=== PATIENT | female | born 1995 | race Caucasian/White ===

== ENCOUNTER → 2019-08-22 | Outpatient (CLI) | payer BC, SELFPAY ==
[2019-08-22 13:43] VITALS: BMI 33.7
[2019-08-22 18:54] LABS: Amphetamine Urine VISTA NEGATIVE (<1000 ng/mL); Barbiturate Urine VISTA NEGATIVE (< 200 ng/mL); Benzodiazepine Urine VISTA NEGATIVE (< 200 ng/mL); Cocaine Urine VISTA NEGATIVE (< 300 ng/mL); Ecstacy Urine VISTA NEGATIVE (< 500 ng/mL); Methadone Urine VISTA NEGATIVE (< 300 ng/mL); PCP Urine VISTA NEGATIVE (< 25 ng/mL); THC Urine VISTA NEGATIVE (< 50 ng/mL); Vista UDS pH Range 7
[2019-08-23 01:31] LABS: Chlamydia Trachomatis by PCR Negative (Negative); Neisserai gonorrhoeae by PCR Negative (Negative); Probe Check PASS; Sample Adequacy Control PASS; Specimen Processing Control PASS
[2019-08-27 19:57] LABS: HPV Reflexed? NOT INDICATED
== END | disposition home or self-care (01) ==
LOC: LABSPEC 17:02
PROVIDERS: Referring Provider Obstetrics & Gynecology; Visit Provider Obstetrics & Gynecology
DX: O99.210 Obesity complicating pregnancy, unspecified trimester (principal); Z3A.00 Weeks of gestation of pregnancy not specified
CPT/HCPCS: 80307; 87086; 87088; 87491; 87591; 88175; G0145

== ENCOUNTER → 2019-08-23 13:40 | Outpatient (CLI) | payer BC, SELFPAY ==
[2019-08-22 13:43] VITALS: BMI 33.7
--- NOTE | 2019-08-23 13:41 | US_ITS ---
STUDY: FIRST TRIMESTER OBSTETRICAL ULTRASOUND REASON FOR EXAM: Female, 23 years old dating LMP: June 21, 2019. TECHNIQUE: Transvaginal TECHNICAL QUALITY: Adequate. PRIOR ULTRASOUND: None. FINDINGS: There is visualization of a single gestational sac in a normal intrauterine position. The mean sac diameter (MSD) measures 1.5 cm, indicating an estimated gestational age (EGA) of 6 weeks, 2 days. The gestational sac shape is within normal limits. There is a visualized yolk sac. The yolk sac measures 3 mm. The placenta is non-visualized. There is visualization of an embryo with no cardiac activity, consistent with intrauterine demise. The crown-rump length (CRL) measures 1.6 cm, indicating an estimated gestational age (EGA) of 7 weeks, 1 days. The estimated gestation age (EGA) by LMP is 9 weeks, 0 days. The estimated date of delivery (SAM) by LMP is March 27, 2020. The estimated gestation age (EGA) by US is 7 weeks, 1 days. The estimated date of delivery (SAM) by US is April 09, 2020. The uterus measures 8.8 cm x 6.3 cm x 4.9 cm. There is no demonstrated uterine fibroid. The cervix is closed. The right ovary measures 2.7 cm x 1.9 cm x 1.8 cm. There is no right ovarian cyst. There is no visualized right adnexal mass or complex lesion. The left ovary was not visualized. There is no fluid in the cul de sac. US/Transvaginal w/Preg US IMPRESSION: demise. Electronically Signed: Manuel Villeda, at 14:43 EDT , Service support ,
== END ==
PROVIDERS: Visit Provider Obstetrics & Gynecology
DX: O02.1 Missed abortion (principal); Z3A.01 Less than 8 weeks gestation of pregnancy
CPT/HCPCS: 76817

== ENCOUNTER 2019-08-31 15:14 | Emergency (ER) | payer BC, SELFPAY ==
[2019-08-27 06:06] VITALS: BMI 33.9
[2019-08-31 15:15] VITALS: BP 143/77; PULSE 89; RESP 17; TEMP 36.6; O2SAT 100; BMI 35.5
--- NOTE | 2019-08-31 15:30 | EKG12_ITS ---
Test Reason : Blood Pressure : / mmHG Vent. Rate : 085 BPM Atrial Rate : 085 BPM P-R Int : 130 ms QRS Dur : 080 ms QT Int : 360 ms P-R-T Axes : 056 058 041 degrees QTc Int : 428 ms Sinus rhythm with marked sinus arrhythmia Otherwise normal ECG Confirmed by SCOTTY SCHILLING, GAYE ([id number]), purchase request editor DWAIN CHANG ([id number]) on 09/02/2019 12:53:41 PM Referred By: COLLIN Confirmed By:GAYE FAJARDO MD
--- NOTE | 2019-08-31 15:30 | RAD_ITS ---
STUDY: X-RAY CHEST REASON FOR EXAM: Female, 23 years old. Intermittent chest pain beginning last night. This told to stay that was not identifiable. Started vaginal bleeding last night. TECHNIQUE: Single AP portable view of the chest. COMPARISON: None. FINDINGS: The lungs are clear and expanded. There is no demonstrated pleural abnormality. Normal size heart. Normal mediastinum and amanda. Normal visualized pulmonary arteries. Normal visualized aortic arch and descending thoracic aorta. Normal visualized thoracic spine. Normal visualized ribs, clavicles, and shoulders. There is no demonstrated abnormality of the visualized soft tissue structures of the upper abdomen. RAD/Chest 1 View (Portable) IMPRESSION: Normal x-ray examination of the chest. Electronically Signed: Duc Campa DO at 16:35 EDT Tel [phone], Service support ,
--- NOTE | 2019-08-31 15:31 | ED.DCSUM_ITS ---
- ER Visit Summary Date of Service: 08/31/19 Chief Complaint: Chest pain History of Present Illness: The patient is a 23 F who presents with chest pain. She describes an intermittent tightness in the middle part of her chest. Does not radiate. Nothing seems to make it better or worse. She has nausea along with some shortness of breath. She is wondering if this is anxiety. She states that she has been through a rough week. She found out earlier this week that her fetus had no heartbeat. She is scheduled to have a D&C next Monday due to non-viability of the fetus. She states she did have an anxiety attack at her brother's once but does not take any medications for this currently. Denies any history of coronary disease. She has no coronary disease risk factors. She has no DVT or PE risk factors. Physical Examination: Vital signs reviewed. HEENT exam unremarkable. Heart is regular rate and rhythm without murmurs. Lungs are clear to auscultation. Her chest is tender in the left parasternal area. Abdomen is soft and nontender. Extremities reveal no edema. Peripheral pulses are equal. Skin exam normal. Neurologic exam normal. Test Results: EKG is normal sinus rhythm with a rate of 85. No ST changes. Troponin is normal. Her hCG quantitative is 7150. Blood type is AB-. Chest x- ray normal Emergency Department Course and Treatment: The patient is PERC negative based on her history and vital signs. I feel that her chest pain is likely anxiety related. I do not feel it is cardiac. I have a very low suspicion for PE. The patient's blood type is AB-. I discussed with Dr. Maldonado. We will give her a dose of RhoGam. She is going to follow-up with her next week. Treatment Plan: [] Disposition: Discharge Impression: Chest pain, miscarriage This note was generated with [employer] dictation software. It may contain incorrect words, spelling, and punctuation that were not noted in review of the chart prior to signing ED Disposition - Plan for ED Patient: Disposition: Home or Assisted Living Instructions: ED Chest Pain NonCardiac Referrals: Care Physician,No Primary [Primary Care Provider] - Manisha Maldonado MD [STAFF PHYSICIAN] -
[2019-08-31 15:41] VITALS: BP 160/104; PULSE 108; RESP 18; O2SAT 100
[2019-08-31 16:49] LABS: hCG Titer Quant., Serum 7150 mIU/mL (1-3)
[2019-08-31 18:15] VITALS: PULSE 81; RESP 19; O2SAT 99
[2019-08-31 19:31] VITALS: BP 128/70; PULSE 68; RESP 16; O2SAT 98
--- NOTE | 2019-08-31 19:31 | ED.RN ---
REVIEWED D/C INSTRUCTIONS, FOLLOW UP CARE, AND S/S THAT WOULD WARRANT A RETURN TO THE ED WITH PT. PT VERBALIZED AN UNDERSTANDING AND DENIES FURTHER QUESTIONS FOR THIS RN. PT SKIN P/W/D, RESP EVEN AND UNLABORED, PT A&O X 3, NO DISTRESS NOTED. PT AMBULATED OUT OF ED, GAIT STEADY.
== END 2019-08-31 19:33 | disposition home or self-care (01) ==
PROVIDERS: Emergency Provider Emergency Medicine
DX: O03.9 Complete or unspecified spontaneous abortion without complication (principal); R06.02 Shortness of breath; R11.0 Nausea; F41.9 Anxiety disorder, unspecified
CPT/HCPCS: 71045; 84484; 84702; 86900; 86901; 90384; 93005; 96372; 99283; A4216; J2790

== ENCOUNTER 2019-09-03 09:25 | Day surgery (SDC) | payer BC, SELFPAY ==
[2019-08-24 11:19] VITALS: BMI 33.7
[2019-08-27 06:06] VITALS: BP 123/76; PULSE 92; RESP 16; TEMP 37.3; O2SAT 99; BMI 33.9
[2019-08-27] MEDS: Lactated Ringers 1,000 ML 100 ML IV (06:16)
--- NOTE | 2019-08-27 07:30 | POC_PTH ---
PATIENT: ASRAH BLUM [place] [facility] [id number] AGE/SX: 23/ ROOM: RE09/03/[address]: Dr. Manisha Maldonado MD : [id number] BED: DIS: 09/03/2019 SPEC #: [id number] RECD: 09/03/19 15:25 STATUS: JOSIE ROGER #: [id number] LESLEY: 08/27/19 07:[address]: Manisha Maldonado DEPT: SURGICAL PATHOLOGY RECD BY: Sujit Baker ENTERED: 09/04/19 09:12 SP TYPE: PROD CONC OTHR DR: No Primary Care Phys Tissues: Product of conception, NOS Procedures: Surgery Specimen Level IV HEADER OPERATION: Dilation and curettage, suction PRE-OP DIAGNOSIS: Missed TISSUE SUBMITTED: Products of conception MICROSCOPIC DIAGNOSIS Products of conception: [place]idua, gestational endometrium and immature chorionic villi (products of conception). SJ:eunice 09/05/19 MICROSCOPIC DESCRIPTION Slides are reviewed. GROSS DESCRIPTION Received in fixative is one container labeled with the patient's name and designated products of conception. The specimen consists of multiple irregular fragments of light geronimo soft tissue that in aggregate measure 8 x 7.5 x 1 cm. parts are not grossly recognized. Taping Foreman portions are submitted in one cassette. / AM:eunice 09/04/19 TC:5 CPT: 27629
[2019-09-03] VITALS (11 sets, daily range): BP systolic 112–134; BP diastolic 57–78; PULSE 55–86; RESP 16; TEMP 36.3–36.7; O2SAT 100; BMI 34.9
--- NOTE | 2019-09-03 09:24 | HP.PCM_ITS ---
- Problem List (1) Missed Status: Acute Comment: 8 weeks measuring 7 spouse Sujit History and Physical Date of Admission: 09/03/19 Intake Vital Signs 08/24/19 BMI 33.7 08/23/19 Height 5 ft 8 in Intake Visit Reasons: Review u/s results Allergies No Known Allergies Allergy (Unverified 08/22/19 13:43) [facility] Social History (Updated 08/24/19 @ 11:[address] Manisha Maldonado MD) adopted: No household members: spouse housing: house current occupational status: employed current occupation: [employer] pets and animals: No history of recent travel: No sexually active: Yes Smoking Status: Never smoker second hand exposure: No alcohol intake: never substance use type: does not use seatbelt use: always do you feel safe at home: Yes additional social history: Lorri Licea HPI Review u/s results : Details: SARAH BLUM is a 23 year old who presents for follow up of ultrasou nd and diagnosed with a missed . crl 16mm with no heartbeat, GS measuring smaller for GA, patient denies any bleeding or cramping. Female Reproductive History Menopausal Symptoms: No night sweats Pregancy History 1 Elective abortions Hx Para Spontaneous abortions Hx # Term Pregnancies Ectopic pregnancies Hx # Pregnancies Multiple births # of living children ROS Const Constitutional: Denies fatigue, night sweats, weight gain or weight loss ENT ENT: Reports system reviewed and no additional complaints, except as docu Cardio Card: Denies chest pain Resp Resp: Denies cough or dyspnea GI GI: Reports as per HPI; denies abdominal pain, constipation, nausea or vomiting : Denies nipple discharge, urinary frequency, urinary incontinence, urinary hesitancy, urinary urgency, vaginal discharge, vaginal dryness, vaginal odor or vaginal itching Musc Musc: Denies joint pain, back pain or muscle weakness Skin Skin/Breast: Denies hair loss, change in hair, dry skin, breast lump, breast pain, breast skin changes or nipple discharge Neuro Neuro: Reports system reviewed and no additional complaints, except as docu Psych Psych: Reports system reviewed and no additional complaints, except as docu Endo Endo: Denies cold intolerance, excessive sweating, heat intolerance or increased thirst Mayur/Lymph Hematologic/Lymphatic: Denies easy bleeding, Denies easy bruising, Denies enlarged lymph nodes Exam Const General: cooperative, healthy appearing, comfortable, no acute distress, well developed Orientation: alert [facility] Head: normal to inspection, normocephalic Ears: hearing grossly normal bilaterally, external ears normal Nose: external nose normal, nares normal Face and sinus: normal facial exam Neck Neck: normal visual inspection, no lymphadenopathy Thyroid: thyroid normal Chest Chest palpation & inspection: normal inspection of the chest Resp Effort & Inspection: normal respiratory effort Auscultation: clear to auscultation bilaterally Cardio Rate: regular rate Rhythm: regular rhythm Heart Sounds: S1 normal, S2 normal GI Inspection: normal to inspection, non-distended Palpation: soft, no hepatosplenomegaly General: bladder normal to palpation External Female Exam: normal external appearance, normal appearance of the urethra Urethra: normal appearance of the urethra, normal palpation, no discharge Speculum Exam - Vagina: normal appearance of the vagina, normal vaginal discharge Speculum Exam - Cervix: normal appearance of the cervix, nontender Bimanual Exam- Vagina & Uterus: normal bimanual exam, uterine size normal, bladder normal to palpation, uterine shape normal, No cervical tenderness, uterine mobility normal, uterine consistency normal, normal cervical palpation, uterus non-tender Bimanual Exam- Adnexa, other: normal adnexae, adnexae mobile, no adnexal masses, pelvic support normal Pelvic Support: normal Musc Other: gross motor intact no deficits, full bilateral strength Skin General: no rashes or lesions noted Neuro General: alert, awake, moves all extremities, no focal motor deficits Motor: muscle tone normal throughout Extrem General: normal to inspection, no pedal edema Psych Appearance: grossly normal Mental Status: mental status grossly normal Affect: normal affect Speech and Movement: speech and movement normal Assessment & Plan Problems 1. Missed O02.1 8 weeks measuring 7 spouse Sujit Plan After discussing the patient's diagnosis and treatment plan options, patient wishes to proceed with surgical management. I have discussed with the patient the risks, benefits, and alternatives of the procedure which include but are not limited to risks of anesthesia, bleeding, infection, possible damage to bowel, bladder, or surrounding vasculature which could lead to additional surgery to evaluate any complications. Patient agrees to procedure and wishes to proceed. ACOG/uptodate references given for additional information regarding procedure. plan suction d and c Coding Level of Care Code Off vis,est,level 3 Diagnoses Missed O02.1 UPDATE- I have seen the patient and performed any clinically relevant updates to the history and physical exam. Manisha Maldonado MD
[2019-09-03 10:08] LABS: Hematocrit 40.2 % (37-47); Hemoglobin 13.4 g/dL (12.0-15.0); Mean Corp Hgb Conc 33.3 g/dL (32-36); Mean Corpuscular Hgb 29.4 pg (27.0-32.0); Mean Corpuscular Volume 88.2 fL (81-99); Mean Platelet Vol. 9.9 fl (6.2-12.0); Platelet Count 242 K/mm3 (150-450); RBC Distribution Width CV 12.3 % (11.6-14.6); RBC Distribution Width SD 39.5 fl (35.1-43.9); Red Blood Count 4.56 M/mm3 (4.2-5.4); White Blood Count 6.1 K/mm3 (4.4-11.0)
[2019-09-03] MEDS: Doxycycline 100 MG CAPSULE PO (11:15)
[2019-09-03] MEDS: Lactated Ringers 1,000 ML 100 ML IV (11:18)
--- NOTE | 2019-09-03 13:56 | PCM.OPRPT ---
Problem List (1) Missed Status: Acute Comment: 8 weeks measuring 7 spouse Sujit Report of Operation Date of Procedure: 09/03/19 Pre-Operative Diagnosis: missed ab 8 weeks Post-Operative Diagnosis: same Surgery/Procedure Performed:: suction d and c Description of Surgical Findings:: 10 week uterus Type of Anesthesia:: Local MAC Special Medications: none Specimen's removed: POC Drains: none Estimated Blood Loss (mL): 100 Fluids Replaced: crystalloid Description of Procedure: Patient was taken to the operating room and placed under MAC local anesthesia. She was prepped and draped in the normal sterile fashion the dorsal lithotomy position. Bladder was drained of clear urine and anterior lip of the cervix was grasped and the uterus sounded to 10 cm. Cervix was progressively dilated to allow passage of a 10 mm suction curette. Progressive passes were made removing the retained products of conception without complication. Sharp curettage confirmed complete removal of the retained products. All instruments were removed from the vagina and excellent hemostasis was noted and the patient was taken to recovery in stable condition. Grafts/Implants Used: none - Complications none Multi Select Codes - Urinary/Genital Urinary/Genital CPT Codes: 85385 Surg Trtmt missed Ab 1TM
--- NOTE | 2019-09-03 13:57 | DCINST_ITS ---
Discharge Diet: No Restrictions Discharge Activity: Return to Normal Activity, May Shower, May Take a Tub Bath Allergies/Adverse Reactions: Allergies No Known Allergies Allergy (Unverified 09/03/19 10:58) Medications to take at Discharge NK 08/22/19 Primary Care Physician: Care Physician,No Primary [Primary Care Provider] - Test Results: Test results from this visit will be discussed in further detail at your follow- up appointment, if applicable. Please Follow Up With: Manisha Maldonado MD - [phone]
== END 2019-09-03 15:05 | disposition home or self-care (01) ==
LOC: SDC 09:26 → AC 09:38
PROVIDERS: Referring Provider Obstetrics & Gynecology; Visit Provider Obstetrics & Gynecology
PROC: (CPT 59820; principal; 2019-09-03 10:55)
DX: O02.1 Missed abortion (principal); Z11.59 Encounter for screening for other viral diseases
CPT/HCPCS: 01965; 59820; 85027; 86850; 86870; 86900; 86901; 87635; 88305; G2023; J7120; J2405; U0002

== ENCOUNTER 2020-01-28 11:45 | Emergency (ER) | payer BC, SELFPAY ==
[2019-09-19 11:23] VITALS: BMI 34.9
[2020-01-28 11:45] VITALS: BP 144/75; PULSE 90; RESP 16; TEMP 36.3; O2SAT 100; BMI 33.7
--- NOTE | 2020-01-28 12:10 | ED.DCSUM_ITS ---
History of Present Illness Chief Complaint: Abd Pain Informant: Patient Onset: Today Context: Sudden Onset Timing: Intermittent Current Severity: Mild Maximum Severity: Moderate Narrative: The patient is a 24-year-old female at approximately 5 weeks gestation who presents to the emergency department with midepigastric pain and nausea that is since improved. The patient states she was in her normal state of health. She states she suddenly got tightness across her mid abdomen and felt very nauseated. She did not have vomiting. She states that since then, her pain has improved, but she does still feel mildly nauseated. She denies any vaginal bleeding or discharge. She denies any food intolerance. She denies any chest pain or shortness of breath. She states she discussed this with her diabetes nurse who referred her to the emergency department. Prior similar symptoms: No Recent Illness/Hospitalization: No Past Medical History - Allergies and Home Meds Allergies/Adverse Reactions: Allergies No Known Allergies Allergy (Verified 01/28/20 11:47) Primary Care Physician: Care Physician,No Primary [Primary Care Provider] - Prior records reviewed: Yes Past Medical History: None Surgical History: no surgical history Smoking Status: Never smoker Review of Systems General: Denies: Chills, Fever, Sweats Eyes: Denies: Visual changes - bilaterally, Diplopia ENT: Denies: Rhinorrhea, Sore throat Cardiovascular: Denies: Chest pain, Palpitations Respiratory: Denies: Dyspnea, Cough, Dyspnea on exertion Gastrointestinal: Reports: Abdominal pain, Nausea. Denies: Vomiting, Diarrhea, Melena, Hematochezia Genitourinary: Denies: Dysuria, Hematuria, Frequency Musculoskeletal: Denies: Back pain, Extremity Pain Skin: Denies: Rash, Wounds Neurological: Denies: Headache, Weakness, Numbness Physical Exam Vital Signs/Narrative: Vital Signs Temp Pulse Resp BP Pulse Ox 01/28/20 11:45 97.4 F L 90 16 144/75 H 100 Inital Vital Signs reviewed: Yes General: Well nourished, Well developed, No Acute Distress Head: Normocephalic, Atraumatic Eyes: Perrl, EOMI ENT: Moist mucous membranes, No rhinorrhea Neck: Supple, Nontender Cardiovascular: Regular rate, Regular rhythm, No murmurs Respiratory: No distress, CTA bilaterally, Chest nontender Abdomen: Soft, Nontender, Nondistended, Normal bowel sounds Back: Nontender, Normal Inspection Extremities: Nontender, No edema Skin: Normal color, No rash Neurological: Alert, Oriented x3, Cranial nerves II-XII grossly intact, Normal Strength, Normal Sensation Psychological: Normal affect, Normal Mood Diagnostic/Tx/Re-eval Clinical Impression(s) from Imaging Studies Obstetrics Ultrasound 01/28/20 13:38 IMPRESSION: Uterine gestational sac with a mean gestational age of 5 weeks. No yolk sac or pole is seen at this time Electronically Signed: Manuel Hattieshyamduong, at 14:52 EDT , Service support , Abnormal Lab Results 01/28/20 01/28/20 01/28/20 12:10 12:10 12:10 WBC 6.0 RBC 4.48 Hgb 13.0 Hct 39.7 MCV 88.6 MCH 29.0 MCHC 32.7 RDW Std Deviation 40.4 RDW Coeff of Sukhjinder 12.4 Plt Count 231 MPV 10.4 Immature Gran % (Auto) 0.200 Neut % (Auto) 68.2 Lymph % (Auto) 21.6 [place] % (Auto) 7.0 Eos % (Auto) 2.3 Baso % (Auto) 0.7 Absolute Neuts (auto) 4.1 Absolute Lymphs (auto) 1.29 Nucleated RBC % 0 Sodium 139 Potassium 3.5 Chloride 108 H Carbon Dioxide 27.0 Anion Gap 4 L BUN 6 L Creatinine 0.56 Estim Creat Clear Calc 151.94 Est GFR (MDRD) Af Amer 174 Est GFR (MDRD) Non-Af 143 BUN/Creatinine Ratio 10.8 Glucose 86 Calcium 8.9 Total Bilirubin 0.30 AST 10 L ALT 18 Alkaline Phosphatase 59 Total Protein 7.5 Albumin 4.1 Globulin 3.4 Albumin/Globulin Ratio 1.2 Lipase 93 HCG, Quant 1055 H Urine Color Urine Clarity Urine pH Ur Specific Willows Urine Protein Urine Glucose (UA) Urine Ketones Urine Occult Blood Urine Nitrite Urine Bilirubin Urine Urobilinogen Ur Leukocyte Esterase Urine RBC Urine WBC Ur Squamous Epith Cells Urine Bacteria Urine Mucus 01/28/20 13:25 WBC RBC Hgb Hct MCV MCH MCHC RDW Std Deviation RDW Coeff of Sukhjinder Plt Count MPV Immature Gran % (Auto) Neut % (Auto) Lymph % (Auto) [place] % (Auto) Eos % (Auto) Baso % (Auto) Absolute Neuts (auto) Absolute Lymphs (auto) Nucleated RBC % Sodium Potassium Chloride Carbon Dioxide Anion Gap BUN Creatinine Estim Creat Clear Calc Est GFR (MDRD) Af Amer Est GFR (MDRD) Non-Af BUN/Creatinine Ratio Glucose Calcium Total Bilirubin AST ALT Alkaline Phosphatase Total Protein Albumin Globulin Albumin/Globulin Ratio Lipase HCG, Quant Urine Color Yellow Urine Clarity Clear Urine pH 7.0 Ur Specific Willows 1.010 Urine Protein Negative Urine Glucose (UA) Normal Urine Ketones 5 H Urine Occult Blood Negative Urine Nitrite Negative Urine Bilirubin Negative Urine Urobilinogen Normal Ur Leukocyte Esterase Negative Urine RBC 0 SEEN Urine WBC 0 SEEN Ur Squamous Epith Cells 0 SEEN Urine Bacteria 0 SEEN Urine Mucus 0 SEEN - Medical Decision Making The patient presents with midepigastric abdominal pain that is since resolved. She did have a positive home test. Her abdomen is soft and nontender. IV was established. Metabolic work-up was pursued. Liver functions were normal. Blood counts were normal. Quant was just over thousand. With the abdominal pain, I did want to rule out ectopic. Patient underwent ultrasound. This shows no evidence of dangerous process. There is a documented gestational sac corresponding with her dates. She is had no further symptoms. At this point, I do feel that she is safe for outpatient therapy. Impression 1. Midepigastric abdominal pain-resolved 2. ED Disposition - Plan for ED Patient: Diagnosis: Instructions: ED Established Normal Symptoms Referrals: Care Physician,No Primary [Primary Care Provider] -
[2020-01-28 12:19] LABS: Absolute Lymphocyte Count 1.29 X10^3/uL (0.83-4.51); Absolute Neutrophil Count 4.1 X10^3/uL (2.0-7.7); Basophil# 0.04 X10^3/uL; Basophil% 0.7 % (0-1); Eosinophil# 0.14 X10^3/uL; Eosinophils% 2.3 % (0-5); Hematocrit 39.7 % (37-47); Lymphocyte # 1.29 X10^3/ul (4.0); Lymphocyte % 21.6 % (19-41); Mean Corp Hgb Conc 32.7 g/dL (32-36); Mean Corpuscular Volume 88.6 fL (81-99); Mean Platelet Vol. 10.4 fl (6.2-12.0); Monocyte# 0.42 X10^3/uL; NRBC Flagged by Analyzer 0 % (0-5); Neutrophil # 4.06 X10^3/uL (2.7-7.7); Neutrophil % 68.2 % (47-70); Platelet Count 231 K/mm3 (150-450); RBC Distribution Width CV 12.4 % (11.6-14.6); RBC Distribution Width SD 40.4 fl (35.1-43.9); Red Blood Count 4.48 M/mm3 (4.2-5.4)
[2020-01-28] MEDS: 0.9% Normal Saline 1,000 ML 1000 ML IV (12:40)
[2020-01-28 12:50] LABS: ALB/GLOB Ratio 1.2 RATIO (0.9-2.4); AST(SGOT) 10 U/L (15-37); Alanine Aminotransfer ALT/SGPT 18 U/L (13-56); Albumin, Serum 4.1 g/dL (3.2-5.0); Alkaline Phosphatase 59 U/L (45-117); Anion Gap 4 (5-15); BUN 6 mg/dL (7-18); BUN/Creat Ratio 10.8 RATIO (10-20); Calcium,Total 8.9 mg/dL (8.5-10.1); Chloride 108 mmol/L (98-107); Creatinine, Serum 0.56 mg/dL (0.55-1.02); EST Glomerular Filtration Rate 143 mL/min (>60); Est Glom Filt Rate - Afr Amer 174 mL/min (>60); Estimated Creatinine Clearance 151.94 ml/min; Globulin 3.4 g/dL (2.2-4.2); Glucose 86 mg/dL (74-106); Lipase 93 U/L (73-393); Potassium 3.5 mmol/L (3.5-5.1); Protein, Total 7.5 g/dL (6.4-8.2); Sodium Level 139 mmol/L (136-145)
[2020-01-28 13:36] LABS: hCG Titer Quant., Serum 1055 mIU/mL (1-3)
--- NOTE | 2020-01-28 13:38 | US_ITS ---
STUDY: FIRST TRIMESTER OBSTETRICAL ULTRASOUND REASON FOR EXAM: Female, 24 years old abd pain -- 1055 quant LMP: 12/19/2019. TECHNIQUE: Transvaginal TECHNICAL QUALITY: Adequate. PRIOR ULTRASOUND: Comparison is made with prior examination dated 08/23/2019. FINDINGS: There is visualization of a single gestational sac in a normal intrauterine position. The mean sac diameter (MSD) measures 3.7 mm, indicating an estimated gestational age (EGA) of 5 weeks, 0 days. The gestational sac shape is within normal limits. There is no demonstrated yolk sac. The placenta is non-visualized. There is no demonstrated embryo ( pole). The estimated gestation age (EGA) by LMP is 5 weeks, 5 days. The estimated date of delivery (SAM) by LMP is 09/24/2020. The estimated gestation age (EGA) by US is 5 weeks, 0 days. The estimated date of delivery (SAM) by US is 09/29/2020. The uterus measures 7.9 cm x 6 cm x 3.8 cm. There is no demonstrated uterine fibroid. The cervix is closed. A trace amount of fluid is seen within the endometrial. The right ovary measures 3.2 cm x 3.1 cm x 2.8 centimeters. There is no right ovarian cyst. There is no visualized right adnexal mass or complex lesion. The left ovary measures 3.3 cm x 3 cm x 1.5 cm. There is no left ovarian cyst. There is no visualized left adnexal mass or complex lesion. There is no fluid in the cul de sac. US/Transvaginal w/Preg US IMPRESSION: Uterine gestational sac with a mean gestational age of 5 weeks. No yolk sac or pole is seen at this time Electronically Signed: Manuel Villeda, at 14:52 EDT , Service support ,
[2020-01-28 13:39] LABS: Bacteria 0 SEEN /hpf (None Seen); Color, Urine Yellow (Yellow); Glucose, Dipstick Normal (Normal); Ketone-Dipstick 5 mg/dl (Negative); Leukocyte Esterase-Dipstick Negative /ul (Negative); Mucous, Urine 0 SEEN /hpf (<or=2+); Nitrite-Dipstick Negative (Negative); Occult Blood-Urine Negative /ul (Negative); Protein-Dipstick Negative (Negative); Red Blood Cells-Urine 0 SEEN /hpf (0-5); Squamous Epithelial Cells - UA 0 SEEN /hpf (5-10); Urine Bilirubin Dipstick Negative (Negative); Urine Clarity Clear (Clear); Urine Urobilinogen Normal (Normal); White Blood Cells 0 SEEN /hpf (0-5)
[2020-01-28 15:23] VITALS: PULSE 87; RESP 17; O2SAT 98
== END 2020-01-28 15:24 | disposition home or self-care (01) ==
PROVIDERS: Emergency Provider Emergency Medicine
DX: O26.891 Other specified pregnancy related conditions, first trimester (principal); R10.13 Epigastric pain; R11.0 Nausea; Z3A.01 Less than 8 weeks gestation of pregnancy
CPT/HCPCS: 76817; 80053; 81001; 83690; 84702; 85025; 96360; 99281; A4216

== ENCOUNTER → 2020-02-26 15:15 | Outpatient (CLI) | payer BC, SELFPAY ==
[2020-02-26 14:28] VITALS: BMI 34.0
--- NOTE | 2020-02-26 15:20 | US_ITS ---
STUDY: FIRST TRIMESTER OBSTETRICAL ULTRASOUND REASON FOR EXAM: Female, 24 years old. Viability. LMP: 12/19/2019. TECHNIQUE: Transvaginal TECHNICAL QUALITY: Adequate. PRIOR ULTRASOUND: 01/18/2020. FINDINGS: There is visualization of a single gestational sac in a normal intrauterine position. The mean sac diameter (MSD) measures 1.68 cm, indicating an estimated gestational age (EGA) of 6 weeks, 4 days. The gestational sac shape is within normal limits. There is no demonstrated yolk sac. The placenta is non-visualized. There is visualization of a live embryo. The crown-rump length (CRL) measures 0.42 cm, indicating an estimated gestational age (EGA) of 6 weeks, 1 days. There is demonstrated cardiac activity with a heart rate of 90 bpm. The estimated gestation age (EGA) by LMP is 9 weeks, 6 days. The estimated date of delivery (SAM) by LMP is 09/24/2020. The estimated gestation age (EGA) by prior US is 9 weeks, 1 days. The estimated date of delivery (SAM) by prior US is 09/29/2020 .The estimated gestation age (EGA) by current US is 6 weeks, 3 days. The estimated date of delivery (SAM) by US is 10/18/2020. The uterus measures 9.0 x 6.0 x 5.4 cm. There is no demonstrated uterine fibroid. The cervix is closed. The right ovary measures 2.1 x 2.1 x 2.3 cm. There is no right ovarian cyst. There is no visualized right adnexal mass or complex lesion. The left ovary measures 3.1 x 1.8 x 1.3 cm. There is no left ovarian cyst. There is no visualized left adnexal mass or complex lesion. There is no fluid in the cul de sac. US/Transvaginal w/Preg US IMPRESSION: 1. Live single intrauterine at 6 weeks, 3 days. SAM is 10/18/2020. This lags approximately 3 weeks behind expected gestational age by initial ultrasound. 2. heart rate of 90 bpm. 3. No visualization of the yolk sac. 4. Normal ovaries. Electronically Signed: Duc Campa DO at 16:24 EST Tel [phone], Service support ,
== END ==
PROVIDERS: Referring Provider Obstetrics & Gynecology; Visit Provider Obstetrics & Gynecology
DX: O36.80X0 Pregnancy with inconclusive fetal viability, not applicable or unspecified (principal); Z87.59 Personal history of other complications of pregnancy, childbirth and the puerperium; Z3A.01 Less than 8 weeks gestation of pregnancy
CPT/HCPCS: 76817

== ENCOUNTER → 2020-03-02 18:47 | Outpatient (CLI) | payer BC, SELFPAY ==
[2020-02-26 14:28] VITALS: BMI 34.0
--- NOTE | 2020-03-02 19:07 | US_ITS ---
We are attempting to reach an attending provider to discuss findings. An addendum with communication details will be sent when the communication is complete. HISTORY: VIABILITY BLEEDING EXAMINATION: US OB Transvaginal TECHNIQUE: Transvaginal (for optimal evaluation of the adnexa) pelvic ultrasound was performed. Grayscale, spectral waveform, and color flow Doppler evaluation of the adnexa. COMPARISON: None LMP: Unknown Beta-hCG: Unknown FINDINGS: UTERUS: 9 x 6.4 x 4.8 cm. Fluid is seen within the cervical canal RIGHT OVARY: 3.5 x 2.4 x 2.1 cm with a volume of 22.19 mL. Corpus luteal cyst measuring 1.4 x 1.9 x 1.9 cm. Vascular flow is noted LEFT OVARY: 3.4 x 2.1 x 1.3 cm with a volume of 20.93 mL. The vascular flow was noted FREE FLUID: None. INTRAUTERINE GESTATIONAL SAC(s) (size/shape): Single. 1.60 cm. YOLK SAC: not identified. POLE: identified CRL 0.39 cm. ESTIMATED GESTATION AGE: 6 weeks 1 day. HEART MOTION: Not identified bpm. PLACENTA: Not visualized due to age. SUBCHORIONIC HEMORRHAGE: None. AMNIOTIC FLUID: Qualitatively normal. US/Transvaginal w/Preg US IMPRESSION: Intrauterine gestational sac or pole visualized with no heart tones. No yolk sac is noted. Estimated gestational age by ultrasound is 6 weeks 1 day with an estimated date of delivery of 10/25/2020 and estimated gestational age by dates is 10 weeks 4 days with an estimated date of delivery by dates of 10/05/2020 This most likely embryonic demise however this may also represent early intrauterine . I would recommend serial beta hCG and follow-up ultrasound for further evaluation if clinically indicated. at 2206 Reported and signed by: Alida Griffith DO Electronically Signed: Alida Griffith DO at 22:04 EST Tel , Service support ,
== END ==
PROVIDERS: Visit Provider Obstetrics & Gynecology
DX: O46.91 Antepartum hemorrhage, unspecified, first trimester (principal); Z3A.10 10 weeks gestation of pregnancy
CPT/HCPCS: 76817

== ENCOUNTER → 2020-03-03 13:53 | Outpatient (CLI) | payer BC, SELFPAY ==
[2020-03-03 13:37] VITALS: BMI 35.2
[2020-03-03 15:03] LABS: hCG Titer Quant., Serum 10521 mIU/mL (1-3)
== END ==
PROVIDERS: Referring Provider Obstetrics & Gynecology; Visit Provider Obstetrics & Gynecology
DX: O03.9 Complete or unspecified spontaneous abortion without complication (principal)
CPT/HCPCS: 36415; 84702

== ENCOUNTER 2020-03-04 02:51 | Emergency (ER) | payer BC, SELFPAY ==
[2020-03-03 13:37] VITALS: BMI 35.2
[2020-03-04 02:53] VITALS: BP 159/81; PULSE 79; RESP 20; TEMP 36.6; O2SAT 100; BMI 35.2
--- NOTE | 2020-03-04 03:16 | ED.VIS.FEGU ---
History of Present Illness Chief Complaint: Vag Bleeding Informant: Patient Pain: Pelvic Pain Onset: Today Context: Gradual Onset Timing: Continuous, Waxes and wanes Quality: Cramping Location: Suprapubic Current Severity: Mild Maximum Severity: Moderate Worsened by: - - n/a Relieved by: - - after bleeding Issue: Vaginal bleeding, Passing clots Onset: Hours - 3 Context: Gradual Onset Timing: Continuous Current Severity: Heavy Maximum Severity: Heavy Associated Symptoms: Negative for: Dysuria, Frequency, Urgency, Hematuria P: 0 Narrative: Patient is , 1-2 days ago she was seen in the office and an ultrasound that showed intrauterine demise, and states she is in the process of miscarrying. She started bleeding lightly yesterday, and tonight it has become much worse, soaking a pad an hour for the past 3 and still bleeding fairly heavily but not necessarily as much as when she was at home. Her OB advised that she come to the emergency department. She denies any systemic symptoms such as lightheadedness, syncope, fevers, weakness, nausea/vomiting. Her blood type is Rh-negative, she had RhoGam for her last miscarriage but has not had it yet for this 1. Past Medical History - Allergies and Home Meds Allergies/Adverse Reactions: Allergies No Known Allergies Allergy (Verified 03/04/20 03:00) Primary Care Physician: Care Physician,No Primary [Primary Care Provider] - Surgical History: no surgical history Lives: Spouse/ Significant Other Smoking Status: Never smoker Review of Systems General: Denies: Chills, Fever, Sweats Eyes: Denies: Visual changes - bilaterally, Diplopia ENT: Denies: Rhinorrhea, Sore throat Cardiovascular: Denies: Chest pain, Palpitations Respiratory: Denies: Dyspnea, Cough, Dyspnea on exertion Gastrointestinal: Reports: Abdominal pain. Denies: Nausea, Vomiting, Diarrhea, Melena, Hematochezia Genitourinary: Reports: - - Vaginal bleeding. See HPI.. Denies: Dysuria, Hematuria, Frequency Musculoskeletal: Denies: Back pain, Extremity Pain Skin: Denies: Rash, Wounds Neurological: Denies: Headache, Weakness, Numbness Physical Exam Vital Signs/Narrative: Vital Signs Temp Pulse Resp BP Pulse Ox 03/04/20 02:53 98 F 79 20 H 159/81 H 100 Inital Vital Signs reviewed: Yes General: Well nourished, Well developed, - - No acute distress Head: Normocephalic, Atraumatic Eyes: Perrl, EOMI ENT: Moist mucous membranes, No rhinorrhea Neck: Supple, Nontender Cardiovascular: Regular rate, Regular rhythm, No murmurs. Negative for: Tachycardia Respiratory: No distress, CTA bilaterally, Chest nontender Abdomen: Soft, Nondistended, Normal bowel sounds, Tender - Mild suprapubic only. Negative for: Guarding, Rebound tenderness : Speculum exam: Normal external genitalia, No active bleeding, Normal cervix, Old blood, Small clots Back: Nontender, Normal Inspection. Negative for: CVA tenderness Extremities: Nontender, No edema Skin: Normal color, No rash Neurological: Alert, Oriented x3, Cranial nerves II-XII grossly intact, Normal Strength, Normal Sensation, Normal Gait Psychological: Normal affect, Normal Mood Diagnostic/Tx/Re-eval Laboratory Tests 03/04/20 03/04/20 Range/Units 03:20 03:20 WBC 10.1 (4.4-11.0) K/mm3 RBC 4.17 L (4.2-5.4) M/mm3 Hgb 12.2 (12.0-15.0) g/dL Hct 36.7 L (37-47) % MCV 88.0 (81-99) fL MCH 29.3 (27.0-32.0) pg MCHC 33.2 (32-36) g/dL RDW Std Deviation 39.1 (35.1-43.9) fl RDW Coeff of Sukhjinder 12.1 (11.6-14.6) % Plt Count 251 (150-450) K/mm3 MPV 10.3 (6.2-12.0) fl Immature Gran % (Auto) 0.200 (0.0-0.9) % Neut % (Auto) 68.6 (47-70) % Lymph % (Auto) 21.2 (19-41) % [place] % (Auto) 7.5 (0-10) % Eos % (Auto) 2.0 (0-5) % Baso % (Auto) 0.5 (0-1) % Absolute Neuts (auto) 6.9 (2.0-7.7) X10^3/uL Absolute Lymphs (auto) 2.14 (0.83-4.51) X10^3/uL Nucleated RBC % 0 (0-5) % Sodium 137 (136-145) mmol/L Potassium 4.1 (3.5-5.1) mmol/L Chloride 105 (98-107) mmol/L Carbon Dioxide 26.0 (21.0-32.0) mmol/L Anion Gap 6 (5-15) BUN 12 (7-18) mg/dL Creatinine 0.59 (0.55-1.02) mg/dL Estim Creat Clear Calc 144.21 ml/min Est GFR (MDRD) Af Amer 162 (>60) mL/min Est GFR (MDRD) Non-Af 134 (>60) mL/min BUN/Creatinine Ratio 20.3 H (10-20) RATIO Glucose 75 (74-106) mg/dL Calcium 9.2 (8.5-10.1) mg/dL - Treatment/Re-Evaluation Treatment: - - IVFB Re-Evaluation: Feels Better - Medical Decision/Diagnostic Studies Labs show no significant anemia. Her vitals remained stable, her exam reassuring with no further active bleeding, small amount of blood in the vault. Ultrasound not available at the time of the patient's presentation. Discussed with Dr. Maldonado, who preferred to scan the patient with the OB ultrasound while here in the ER to determine the best management of the patient. Ultrasound appears to show that she has likely completed her miscarriage. She will provide her some prescriptions and she will follow-up in the office. Will be discharged home. ED Disposition - Plan for ED Patient: Disposition: Home or Assisted Living Diagnosis: Complete miscarriage Instructions: ED MISCARRIAGE Completed Referrals: Yesenia Hernández MD [STAFF PHYSICIAN] - (as directed by Dr. Maldonado)
[2020-03-04] MEDS: 0.9% Normal Saline 1,000 ML 999 ML IV (03:21)
[2020-03-04 03:25] LABS: Absolute Lymphocyte Count 2.14 X10^3/uL (0.83-4.51); Absolute Neutrophil Count 6.9 X10^3/uL (2.0-7.7); Basophil# 0.05 X10^3/uL; Basophil% 0.5 % (0-1); Hematocrit 36.7 % (37-47); Hemoglobin 12.2 g/dL (12.0-15.0); Lymphocyte # 2.14 X10^3/ul (4.0); Lymphocyte % 21.2 % (19-41); Mean Corp Hgb Conc 33.2 g/dL (32-36); Mean Corpuscular Hgb 29.3 pg (27.0-32.0); Mean Platelet Vol. 10.3 fl (6.2-12.0); Monocyte# 0.76 X10^3/uL; Monocyte% 7.5 % (0-10); NRBC Flagged by Analyzer 0 % (0-5); Neutrophil # 6.92 X10^3/uL (2.7-7.7); Neutrophil % 68.6 % (47-70); Platelet Count 251 K/mm3 (150-450); RBC Distribution Width CV 12.1 % (11.6-14.6); RBC Distribution Width SD 39.1 fl (35.1-43.9); Red Blood Count 4.17 M/mm3 (4.2-5.4); White Blood Count 10.1 K/mm3 (4.4-11.0)
[2020-03-04 03:40] LABS: Anion Gap 6 (5-15); BUN 12 mg/dL (7-18); BUN/Creat Ratio 20.3 RATIO (10-20); Calcium,Total 9.2 mg/dL (8.5-10.1); Chloride 105 mmol/L (98-107); Creatinine, Serum 0.59 mg/dL (0.55-1.02); EST Glomerular Filtration Rate 134 mL/min (>60); Est Glom Filt Rate - Afr Amer 162 mL/min (>60); Estimated Creatinine Clearance 144.21 ml/min; Glucose 75 mg/dL (74-106); Potassium 4.1 mmol/L (3.5-5.1); Sodium Level 137 mmol/L (136-145)
[2020-03-04 06:19] VITALS: BP 126/70; PULSE 78; RESP 16; O2SAT 98
--- NOTE | 2020-03-04 06:31 | PCM.CONS.GEN ---
Problem List (1) Complete miscarriage Status: Acute Comment: Seen in ER 03/04. 1.8 cm heterogenous lining with no gestational sac seen. Cytotec x1 ordered. follow-up in office in 1 week. Follow hCGs until 0. Bleeding precautions reviewed. Reason for Consult Date of Consultation: 03/04/20 History of Present Illness: The patient is a 24 year old F G2, P0 presents with bleeding in the process of a miscarriage. Patient was seen and diagnosed with missed AB at 6 weeks with no heart tones seen. Patient was counseled regarding options and requested expectant management. Patient presented due to bleeding saturating a pad an hour for more than 2 hours in a row at home and was seen here in the ER. Bleeding has significantly decreased upon bedside ultrasound the lining of the uterus is heterogenous with no gestational sac seen lining measuring 1.8 cm with suspected miscarriage in process. Past Medical History Medical History: Medical History (Last Reviewed 03/03/20 @ 13:38 by Arianna Sutton) H/O miscarriage, currently (Acute) O09.299 08/2019 Allergies No Known Allergies Allergy (Verified 03/04/20 03:00) Home Medications: Ambulatory Orders Medication Instructions Recorded multivitamin no.47-iron fum 27 cap PO 02/18/20 mg-folate no.1 1 mg-dha 300 mg capsule Misoprostol [Cytotec] 800 mcg PO X1 #4 tab 03/04/20 Naproxen [Naprosyn] 250 - 500 mg PO Q8H PRN PRN #30 tab 03/04/20 Oxycodone HCl/Acetaminophen 1 - 2 tablet PO Q6H PRN PRN 7 Days 03/04/20 [Percocet 5-325] #10 tablet Surgical History: Surgical History (Last Reviewed 03/03/20 @ 13:38 by Arianna Sutton) S/P dilation and curettage (Acute) Onset Date: ~09/03/19 Z98.890 suction-8 week missed AB History of wisdom tooth extraction, class IV edentulism K08.494 Surgical History: no surgical history Lives: Spouse/ Significant Other Smoking Status: Never smoker Review of Systems Constitutional: Denies: Fever, Malaise Eyes: Denies: Blurred vision, Vision Change HEENT: Denies: Head Aches, Visual Changes Cardiovascular: Denies: Chest Pain, Palpitations Respiratory: Denies: Cough, Shortness of Breath, Wheezing Gastrointestinal: Reports: Abdominal Pain, Nausea. Denies: Diarrhea, Vomiting Genitourinary: Denies: Dysuria, Hematuria Gynecological: Reports: Vaginal bleeding Musculoskeletal: Denies: Joint Pain, Muscle pain Skin: Denies: Lesions, Rash Neurological: Denies: Blurred vision, Focal weakness, Headaches Psychiatric: Denies: Anxiety, Depression Endocrine: Denies: Heat/ Cold Intolerance Hematologic/ Lymphatic: Denies: Easy Bruising, Easy Bleeding Patient Problems: Active and Suspected Problems (Last Reviewed 03/03/20 @ 13:38 by Arianna Sutton) Complete miscarriage (Acute) Seen in ER 03/04. 1.8 cm heterogenous lining with no gestational sac seen. Cytotec x1 ordered. follow-up in office in 1 week. Follow hCGs until 0. Bleeding precautions reviewed. - Physical Exam Vitals/I&O's: Vital Signs Temp Pulse Resp BP Pulse Ox 98 F 78 16 126/70 H 98 03/04/20 02:53 03/04/20 06:19 03/04/20 06:19 03/04/20 06:19 03/04/20 06:19 Oxygen Delivery Method Room Air Weight: 224 lb 13.944 oz Body Mass Index (BMI) 35.2 Intake and Output for Last 24 Hours 03/02/20 03/03/20 03/04/20 23:59 23:59 23:59 Intake Total 1000 / 1000 Balance 1000 / 1000 General: Alert, Oriented x3 HEENT: Normocephalic Oral: Moist Mucosa Neck: Trachea Midline, Thyroid Normal Size and Texture Lungs: Clear to auscultation, Normal air movement Cardiovascular: Regular rate, Regular Rhythm Abdomen: Soft, Non Tender Extremities: No edema Laboratory Results 03/04/20 03:20: WBC 10.1, RBC 4.17 L, Hgb 12.2, Hct 36.7 L, MCV 88.0, MCH 29.3, MCHC 33.2, RDW Std Deviation 39.1, RDW Coeff of Sukhjinder 12.1, Plt Count 251, MPV 10.3, Immature Gran % (Auto) 0.200, Neut % (Auto) 68.6, Lymph % (Auto) 21.2, [place] % (Auto) 7.5, Eos % (Auto) 2.0, Baso % (Auto) 0.5, Absolute Neuts (auto) 6.9, Absolute Lymphs (auto) 2.14, Nucleated RBC % 0 03/04/20 03:20: Sodium 137, Potassium 4.1, Chloride 105, Carbon Dioxide 26.0, Anion Gap 6, BUN 12, Creatinine 0.59, Estim Creat Clear Calc 144.21, Est GFR (MDRD) Af Amer 162, Est GFR (MDRD) Non-Af 134, BUN/Creatinine Ratio 20.3 H, Glucose 75, Calcium 9.2 03/04/20 03:20: Blood Type AB NEGATIVE, Antibody Screen NEGATIVE Assessment/Plan All Active Problems (Last Reviewed 03/03/20 @ 13:38 by Arianna Sutton) Complete miscarriage (Acute) S/P dilation and curettage (Acute ~09/03/19) H/O miscarriage, currently (Acute) Supervision of normal (Acute) (Acute) Missed (Resolved) Obesity affecting (Resolved) (Resolved) Supervision of normal first (Resolved) 24-year-old with miscarriage in process complete AB. Discussed options of expectant versus medical versus surgical management. It appears that most everything is complete except for some bleeding due to her still being clot seen in the lining of the uterus but no gestational sac seen anymore. Patient to take Cytotec x1 and pain medication ordered for comfort. Discussed follow-up in 1 week in the office for repeat ultrasound and will follow hCGs until negative. Multi Select Codes - Visit Charges Office Visit/Consults: [id number] OV L3 Est
== END 2020-03-04 04:40 | disposition home or self-care (01) ==
LOC: ED 03:29
PROVIDERS: Emergency Provider Emergency Medicine
DX: O03.9 Complete or unspecified spontaneous abortion without complication (principal)
CPT/HCPCS: 80048; 85025; 86850; 86900; 86901; 96360; 96361; 99283; J7030

== ENCOUNTER → 2020-03-10 13:15 | Outpatient (CLI) | payer BC, SELFPAY ==
[2020-03-04 02:53] VITALS: BMI 35.2
[2020-03-10 13:59] LABS: Absolute Lymphocyte Count 1.17 X10^3/uL (0.83-4.51); Absolute Neutrophil Count 2.9 X10^3/uL (2.0-7.7); Basophil# 0.04 X10^3/uL; Basophil% 0.9 % (0-1); Eosinophils% 4.3 % (0-5); Hemoglobin 12.8 g/dL (12.0-15.0); Lymphocyte # 1.17 X10^3/ul (4.0); Lymphocyte % 25.3 % (19-41); Mean Corp Hgb Conc 32.8 g/dL (32-36); Mean Corpuscular Hgb 29.2 pg (27.0-32.0); Mean Corpuscular Volume 88.8 fL (81-99); Mean Platelet Vol. 10.4 fl (6.2-12.0); Monocyte# 0.35 X10^3/uL; Monocyte% 7.6 % (0-10); NRBC Flagged by Analyzer 0 % (0-5); Neutrophil # 2.86 X10^3/uL (2.7-7.7); Neutrophil % 61.7 % (47-70); Platelet Count 247 K/mm3 (150-450); RBC Distribution Width CV 12.2 % (11.6-14.6); RBC Distribution Width SD 39.5 fl (35.1-43.9); Red Blood Count 4.39 M/mm3 (4.2-5.4); White Blood Count 4.6 K/mm3 (4.4-11.0)
[2020-03-10 14:10] LABS: Amphetamine Urine VISTA NEGATIVE (<1000 ng/mL); Barbiturate Urine VISTA NEGATIVE (< 200 ng/mL); Benzodiazepine Urine VISTA NEGATIVE (< 200 ng/mL); Cocaine Urine VISTA NEGATIVE (< 300 ng/mL); Ecstacy Urine VISTA NEGATIVE (< 500 ng/mL); Methadone Urine VISTA NEGATIVE (< 300 ng/mL); PCP Urine VISTA NEGATIVE (< 25 ng/mL); THC Urine VISTA NEGATIVE (< 50 ng/mL); Vista UDS pH Range 6
[2020-03-10 14:23] LABS: Glucose Challenge Gest 1H 50g 78 mg/dL (70-140)
[2020-03-10 14:49] LABS: hCG Titer Quant., Serum 1510 mIU/mL (1-3)
[2020-03-10 15:09] LABS: HIV - WCH Non-Reactive (Nonreactive); Hepatitis B Surface Antigen Non-Reactive (Nonreactive); Hepatitis C Antibody Non-Reactive (Nonreactive)
[2020-03-12 05:07] LABS: Rapid Plasmin Reagin (RPR) NONREACTIVE (NONREACTIVE)
== END ==
PROVIDERS: Referring Provider Obstetrics & Gynecology; Visit Provider Obstetrics & Gynecology
DX: O99.210 Obesity complicating pregnancy, unspecified trimester (principal); O03.9 Complete or unspecified spontaneous abortion without complication; Z3A.00 Weeks of gestation of pregnancy not specified
CPT/HCPCS: 36415; 80307; 82950; 84702; 85025; 86592; 86703; 86803; 86850; 86900; 86901; 87086; 87340

== ENCOUNTER → 2020-03-11 | Outpatient (CLI) | payer BC, SELFPAY ==
--- NOTE | 2020-03-11 | POC_PTH ---
PATIENT: SARAH BLUM [facility] U#:[id number] AGE/SX: 24/ ROOM: RE03/11/[address]: Dr. Yesenia Hernández MD : [id number] BED: DIS: 03/11/2020 SPEC #: [id number] RECD: 03/11/20 17:08 STATUS: JOSIE FAULKNERAlesha #: [id number] LESLEY: 03/11/20 00:[address]: Yesenia Hernández DEPT: SURGICAL PATHOLOGY RECD BY: Ramon Coleman Tissues: Product of conception, NOS Procedures: Surgery Specimen Level IV HEADER OPERATION: Not noted PRE-OP DIAGNOSIS: Missed AB TISSUE SUBMITTED: Products of conception MICROSCOPIC DIAGNOSIS Products of conception: Fragments of inflamed decidua and scant immature chorionic villi (products of conception). SJ:eunice 03/16/20 MICROSCOPIC DESCRIPTION Slides are reviewed. GROSS DESCRIPTION Received is one container labeled with the patient's name and not further designated. The specimen consists of multiple irregular fragments of geronimo soft tissue mixed with blood clot that in aggregate measure 3 x 2.5 x 0.3 cm. The specimen is totally submitted in one cassette. / SJ:eunice 03/13/20 TC:5 CPT: 82207
[2020-03-11 15:42] VITALS: BMI 34.4
== END | disposition home or self-care (01) ==
LOC: LABSPEC 03-13 06:15
PROVIDERS: Visit Provider Obstetrics & Gynecology
DX: O02.1 Missed abortion (principal)
CPT/HCPCS: 88305

== ENCOUNTER → 2020-04-02 15:10 | Outpatient (CLI) | payer BC, SELFPAY ==
[2020-03-11 15:42] VITALS: BMI 34.4
[2020-04-02 15:52] LABS: hCG Titer Quant., Serum 13 mIU/mL (1-3)
== END ==
PROVIDERS: Referring Provider Obstetrics & Gynecology; Visit Provider Obstetrics & Gynecology
DX: O02.1 Missed abortion (principal); Z3A.00 Weeks of gestation of pregnancy not specified
CPT/HCPCS: 36415; 84702

== ENCOUNTER → 2020-06-02 15:18 | Outpatient (CLI) | payer BC, SELFPAY ==
[2020-04-02 15:24] VITALS: BMI 33.7
[2020-06-07 03:06] LABS: Dilute Prothrombin Time (dPT) 33.2 sec (0.0-55.0); Dilute Russell Viper Venom 31.9 sec (0.0-47.0); Thrombin Time 17.1 sec (0.0-23.0); dPT Confirm Ratio 0.99 Ratio (0.00-1.40)
[2020-06-07 07:49] LABS: Anti-Cardiolipin Ab, IgA, Qn < 9 APL U/mL (0-11); Anti-Cardiolipin Ab, IgG, Qn < 9 GPL U/mL (0-14); Anti-Cardiolipin Ab, IgM, Qn 19 MPL U/mL (0-12); Beta-2-Glycoprotein I IgA <9 (0-25); Beta-2-Glycoprotein I IgG <9 (0-20)
[2020-06-07 07:50] LABS: Beta-2-Glycoprotein I IgM <9 (0-32); Interpretation Comment: (.)
== END ==
PROVIDERS: PCP Student in an Organized Health Care Education/Training Program; Referring Provider Obstetrics & Gynecology; Visit Provider Obstetrics & Gynecology
DX: N96 Recurrent pregnancy loss (principal)
CPT/HCPCS: 36415; 86146; 86147

== ENCOUNTER → 2020-09-02 15:51 | Outpatient (CLI) | payer BC, SELFPAY ==
[2020-04-02 15:24] VITALS: BMI 33.7
[2020-09-06 03:06] LABS: Dilute Prothrombin Time (dPT) 35.6 sec (0.0-55.0); Dilute Russell Viper Venom 34.1 sec (0.0-47.0); PTT-LA 36.7 sec (0.0-51.9); Thrombin Time 16.8 sec (0.0-23.0); dPT Confirm Ratio 1.01 Ratio (0.00-1.40)
[2020-09-06 08:40] LABS: Anti-Cardiolipin Ab, IgA, Qn < 9 APL U/mL (0-11); Anti-Cardiolipin Ab, IgG, Qn < 9 GPL U/mL (0-14); Anti-Cardiolipin Ab, IgM, Qn 11 MPL U/mL (0-12); Beta-2-Glycoprotein I IgA <9 (0-25); Beta-2-Glycoprotein I IgG <9 (0-20); Beta-2-Glycoprotein I IgM <9 (0-32); Interpretation Comment: (.)
== END ==
PROVIDERS: PCP Student in an Organized Health Care Education/Training Program; Referring Provider Obstetrics & Gynecology; Visit Provider Obstetrics & Gynecology
DX: N96 Recurrent pregnancy loss (principal)
CPT/HCPCS: 36415; 86146; 86147

== ENCOUNTER → 2020-09-23 17:10 | Outpatient (CLI) | payer BC, SELFPAY ==
[2020-04-02 15:24] VITALS: BMI 33.7
[2020-09-23 18:13] LABS: hCG Titer Quant., Serum 347 mIU/mL (1-3)
== END ==
PROVIDERS: PCP Student in an Organized Health Care Education/Training Program; Referring Provider Nurse Practitioner Women's Health; Visit Provider Nurse Practitioner Women's Health
DX: N92.6 Irregular menstruation, unspecified (principal)
CPT/HCPCS: 36415; 84702

== ENCOUNTER → 2020-09-25 17:48 | Outpatient (CLI) | payer BC, SELFPAY ==
[2020-04-02 15:24] VITALS: BMI 33.7
[2020-09-25 19:18] LABS: hCG Titer Quant., Serum 814 mIU/mL (1-3)
== END ==
PROVIDERS: PCP Student in an Organized Health Care Education/Training Program; Visit Provider Nurse Practitioner Women's Health
DX: N91.2 Amenorrhea, unspecified (principal)
CPT/HCPCS: 36415; 84702

== ENCOUNTER → 2020-10-09 12:04 | Outpatient (CLI) | payer BC, SELFPAY ==
[2020-10-09 11:30] VITALS: BMI 33.7
[2020-10-13 03:06] LABS: Chlamydia By Nucleic Acid AMP Negative (Negative)
[2020-10-14 15:52] LABS: Gonococcus By Nucleic Acid AMP Negative (Negative)
== END ==
PROVIDERS: PCP Student in an Organized Health Care Education/Training Program; Referring Provider Obstetrics & Gynecology; Visit Provider Obstetrics & Gynecology
DX: Z34.90 Encounter for supervision of normal pregnancy, unspecified, unspecified trimester (principal)
CPT/HCPCS: 36415; 86850; 86900; 86901; 87086; 87088; 87491; 87591